=== PATIENT | male | born 1965 | race Caucasian/White ===

== ENCOUNTER 2016-08-13 16:07 | Emergency (ER) | payer OTHER ==
[~2016-08-13] VITALS: Ht 185.4 cm; Wt 145.1 kg
[2016-08-13 16:30] VITALS: BP 138/88
--- NOTE | 2016-08-13 16:41 | PHYS DOC ---
Adult General Chief Complaint Chief Complaint: EYE PROBLEMS HPI HPI Patient is a 51-year-old male who complains that since about a week ago, he has had some occasional redness, eyelid swelling, mattering, itchiness of both eyes. He has had no eye pain, no change in vision. 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 He stopped at a pharmacy and a pharmacist advised him to try some eyedrops of some type, he is not sure what type they were, but they did help somewhat. He is going back on the road tomorrow so wanted to get checked out. He has had seasonal allergy symptoms in the past with sneezing, runny nose, but does not have those right now. Review of Systems Review of Systems Constitutional: Denies fever or chills [] Eyes: As in history of present illness HENT: He has had some nasal congestion also Respiratory: Denies cough or shortness of breath [] Physical Exam Physical Exam Constitutional: Well developed, well nourished, no acute distress, non-toxic appearance. Alert, mentating normally. HENT: Normocephalic, atraumatic, bilateral external ears normal, oropharynx moist, no oral exudates, nose normal. [] Eyes: Eyelids are slightly puffy bilaterally. No mattering in the eyelashes noted. No significant conjunctival injection noted. No chemosis noted. Neck: Normal range of motion, no stridor. [] Skin: Warm, dry, no erythema, no rash. [] Extremities: No tenderness, no cyanosis, no clubbing, ROM intact, no edema. [] Neurologic: Alert and oriented X 3, normal motor function, normal sensory function, no focal deficits noted. [] EKG EKG [] Radiology/Procedures Radiology/Procedures [] Course & Med Decision Making Course & Med Decision Making Pertinent Labs and Imaging studies reviewed. (See chart for details) I believe the patient's symptoms are most likely due to allergic conjunctivitis , see instructions for plan. [] Dragon Disclaimer Dragon Disclaimer This chart was dictated in whole or in part using Voice Recognition software in a busy, high-work load, and often noisy Emergency Department environment. It may contain unintended and wholly unrecognized errors or omissions. Departure Departure: Impression: Primary Impression: Allergic conjunctivitis Disposition: 01 HOME, SELF-CARE Condition: STABLE Patient Instructions: Allergic Conjunctivitis, [id number] Additional Instructions: As we discussed, when you're outside and having allergy symptoms, make sure you shower and wash your hair to get rid of pollen or allergens, wash your clothes before you wear them again for the same reason. Cold compresses to your eyes for swelling and itching symptoms. Purchase [id number] eye drops for allergy symptoms such as Opcon-A or generic, use as directed. NAYE ALBA MD Aug 13, 2016 16:41
== END 2016-08-13 16:44 | disposition home or self-care (01) ==
LOC: ER 16:07
DX: H10.13 Acute atopic conjunctivitis, bilateral (principal); R09.81 Nasal congestion
CPT/HCPCS: 99282

== ENCOUNTER 2019-10-10 08:11 | Emergency (ER) | payer OTHER ==
[~2019-10-10] VITALS: Ht 185.4 cm; Wt 157.8 kg
[2019-10-10] MEDS ORDERED: IV NORMAL SALINE 1,000ML 1,000 ML IV SCH (08:21)
--- NOTE | 2019-10-10 08:23 | PHYS DOC ---
Past History Past Medical History: No Pertinent History, Hypertension Past Medical History enlarged prostate Past Surgical History: No Surgical History Smoking: Non-smoker Alcohol Use: None Drug Use: None General Adult EDM: Chief Complaint: chest pain HPI: HPI: Patient is a 54 year old male who presents for evaluation of central chest pain and chest pressure that started 1 hour ago. Patient was short of air and had significant sweats as well. Patient just got out of the shower at the time. Patient does not have any known cardiac history and has never had a stress test. Risk factors include hypertension. Furthermore patient felt he had tremors this morning as well. Patient anxious on arrival. Review of Systems: Review of Systems: Constitutional: Denies fever or chills Eyes: Denies change in visual acuity HENT: Denies nasal congestion or sore throat Respiratory: Denies cough has shortness of breath Cardiovascular: has chest pain but no edema GI: Denies abdominal pain, nausea, vomiting, bloody stools or diarrhea : Denies dysuria Musculoskeletal: Denies back pain or joint pain Integument: Denies rash Neurologic: Denies headache, focal weakness or sensory changes Endocrine: Denies polyuria or polydipsia Lymphatic: Denies swollen glands Psychiatric: Denies depression or anxiety Heart Score: HEART Score for Chest Pain: HEART Score for Chest Pain Response (Comments) Value History Moderately Suspicious 1 ECG Nonspecific Repolarizatio 1 Age >45 - < 65 1 Risk Factors 1 or 2 Risk Factors 1 Troponin >1-<3x Normal Limit 1 Total 5 Risk Factors: Risk Factors: DM, Current or recent (<one month) smoker, HTN, HLP, family h istory of CAD, obesity. Risk Scores: Score 0 - 3: 2.5% MACE over next 6 weeks - Discharge Home Score 4 - 6: 20.3% MACE over next 6 weeks - Admit for Clinical Observation Score 7 - 10: 72.7% MACE over next 6 weeks - Early Invasive Strategies Physical Exam: PE: Constitutional: Well developed, well nourished, moderate distress. [] HENT: Normocephalic, atraumatic, bilateral external ears normal, oropharynx mo ist, no oral exudates, nose normal. [] Eyes: PERRL, EOMI, conjunctiva normal, no discharge. [] Neck: Normal range of motion, no tenderness, supple, no stridor. [] Cardiovascular:Heart rate regular rhythm, no murmur [] Lungs & Thorax: Bilateral breath sounds clear to auscultation [] Abdomen: Bowel sounds normal, soft, no tenderness, no masses, no pulsatile masses. [] Skin: Warm, sweats present on arrival, no erythema, no rash. [] Back: No tenderness. [] Extremities: No tenderness, no cyanosis, ROM intact, no edema. [] Neurologic: Alert and oriented X 3, normal motor function, normal sensory function, no focal deficits noted. [] Psychologic: Affect normal, judgement normal, mood mild anxious. [] Current Patient Data: Labs: Laboratory Tests Test 10/10/19 08:40 White Blood Count 5.9 x10^3/uL Red Blood Count 4.78 x10^6/uL Hemoglobin 15.8 g/dL Hematocrit 46.7 % Mean Corpuscular Volume 98 fL Mean Corpuscular Hemoglobin 33 pg Mean Corpuscular Hemoglobin Concent 34 g/dL Red Cell Distribution Width 13.9 % Platelet Count 164 x10^3/uL Neutrophils (%) (Auto) 61 % Lymphocytes (%) (Auto) 28 % Monocytes (%) (Auto) 8 % Eosinophils (%) (Auto) 3 % Basophils (%) (Auto) 1 % Neutrophils # (Auto) 3.6 x10^3uL Lymphocytes # (Auto) 1.7 x10^3/uL Monocytes # (Auto) 0.4 x10^3/uL Eosinophils # (Auto) 0.2 x10^3/uL Basophils # (Auto) 0.1 x10^3/uL Sodium Level 136 mmol/L Potassium Level 3.5 mmol/L Chloride Level 100 mmol/L Carbon Dioxide Level 22 mmol/L Anion Gap 14 Blood Urea Nitrogen 19 mg/dL Creatinine 1.4 mg/dL Estimated GFR (Cockcroft-Gault) 53.0 BUN/Creatinine Ratio 14 Glucose Level 152 mg/dL Calcium Level 8.8 mg/dL Total Bilirubin 0.5 mg/dL Aspartate Amino Transf (AST/SGOT) 27 U/L Alanine Aminotransferase (ALT/SGPT) 40 U/L Alkaline Phosphatase 51 U/L Creatine Kinase 262 U/L Creatine Kinase MB (Mass) 1.6 ng/mL Creatine Kinase MB Relative Index 0.6 % Troponin I Quantitative 0.019 ng/mL Total Protein 7.4 g/dL Albumin 3.8 g/dL Albumin/Globulin Ratio 1.1 Current Medications Medications (Trade) Dose Ordered Sig/Candice Route PRN Reason Start Time Stop Time Status Last Admin Dose Admin Aspirin (Aspirin Chewable) 324 mg 1X ONCE PO 10/10/19 08:30 10/10/19 08:42 DC 10/10/19 08:56 Sodium Chloride 1,000 ml @ 100 mls/hr Q10H IV 10/10/19 08:21 10/10/19 18:20 10/10/19 08:57 Adenosine (Adenocard) 6 mg 1X ONCE IV 10/10/19 08:45 10/10/19 08:46 DC 10/10/19 08:55 Adenosine (Adenocard) 6 mg STK-MED ONCE IV 10/10/19 08:34 10/10/19 08:34 DC Adenosine (Adenocard) 12 mg 1X ONCE IV 10/10/19 08:45 10/10/19 08:52 DC 10/10/19 08:56 EKG: EKG: EKG read at 0829 AM showed SVT rate 174, leftward axis, cannot exclude some lateral ischemic changes, [] Second EKG 8:54 AM after adenosine patient now in a normal sinus rhythm rate 95, flattened T wave lead aVL, otherwise unremarkable appearing EKG #3 Read at 1358, normal sinus rhythm, not STEMI, no obvious acute EKG changes Radiology/Procedures: Radiology/Procedures: [][place] [address] IMAGING REPORT Signed PATIENT: JOSEFINA CATHERINE ACCOUNT: [id number] : 1965 LOCATION: ER AGE: 54 SEX: M EXAM STATUS: REG ER ORD. PHYSICIAN: JOAN MEEKS DO REASON: chest pain PROCEDURE: PORTABLE CHEST 1V PORTABLE CHEST 1V Clinical indications: Chest pain. COMPARISON: None available. Findings: No acute lung infiltrate or pleural effusion or pulmonary edema or lung mass or pneumothorax is seen. The heart size, pulmonary vasculature, mediastinum and both compa are unremarkable. Impression: No acute radiographic abnormality is seen. Electronically signed by: Sarbjit Pabon MD (10/10/2019 9:26 AM) [id number] DICTATED AND SIGNED BY: SARBJIT PABON MD DATE: 10/10/19 09 CC: RUSSELL RAMOS MD; JOAN MEEKS DO ~ Course & Med Decision Making: Course & Med Decision Making Pertinent Labs and Imaging studies reviewed. (See chart for details) 0841 adenosine 6 mg given with no improvement of symptoms. That was quickly repeated by adenosine 12 mg IV. This converted patient to a sinus tachycardia rhythm. Patient tolerated procedure well. Pads were in place before medication was given. Repeat EKG ordered 0920 patient feeling much better now. He remains in a normal sinus rhythm. Chest discomfort essentially resolved. Patient no longer diaphoretic 0930 bridge construction inspector for cardiology paged to discuss case. 1000 bridge construction inspector for Cardiology paged again to discuss case, we did receive a call back. 1024 Dr. Keyes from cardiology called to discuss case. Since patient is symptom-free at this time he would like a 4-hour troponin level and if that remains normal patient is to follow-up with him in the office tomorrow. The meantime we will start him on metoprolol 25 mg p.o. twice daily. Patient is currently chest pain-free and asymptomatic 1305 repeat troponin now 0.228. Physician Office Specialist paged to discuss case [phone] Multiple paged to Cardiology were not answered. I talked to the hospitalist service under Dr. Matute and he suggested pt will need higher level of care. Pt consented to transport to [facility]. 13[address] Dr. Boudreaux will be the accepting physician at [facility]. We will give loading dose of heparin IV as requested 4000 units. They will be consult with Dr. Keyes 1359 Dr. Keyes called back. Will see patient in consult at [facility]. Current EKG does not show evidence of a STEMI. Mckinley Disclaimer: Mckinley Disclaimer: This electronic medical record was generated, in whole or in part, using a voice recognition dictation system. Departure Departure: Impression: Primary Impression: SVT (supraventricular tachycardia) Additional Impressions: Elevated troponin I level Substernal precordial chest pain Disposition: 05 TRANSFER OTHER (Transferred to [facility] under the care of Dr. Boudreaux) Condition: STABLE Referrals: RUSSELL RAMOS MD (PCP) Justification of Admission: Justification of Admission: Justification of Admission Dx: Yes Angina: Symp at Rest Cardioversion Indication: SVT Consent: verbal Pre-Medication: none Procedure: The patient was placed in the supine position and the chest area was exposed. The cardioversion pads were applied in the standard manner and configuration. Attempt #1: adenosine 6mg followed by adenosine 12mg IV given Attempt #2: [RESULTS:] Attempt #3: [RESULTS:] The patient tolerated the procedure well Complications: none Critical Care Time Critical care time was 30 minutes exclusive of procedures. This included talking to the insecticide maker, hospitalist, family as well as reviewing x-ray results, EKG and lab result JOAN MEEKS DO Oct 10, 2019 08:23
[2019-10-10] MEDS ORDERED: ASPIRIN CHEWABLE 81 MG TABLET. PO ONE (08:30)
[2019-10-10] MEDS ORDERED: ADENOSINE 6 MG/2 ML VIAL IV ONE ×3 (08:34→08:45)
[2019-10-10 09:08] LABS: BASO # 0.1 x10^3/uL (0.0-0.2); BASO % 1 % (0-3); EOS # 0.2 x10^3/uL (0.0-0.7); EOS % 3 % (0-3); HEMATOCRIT 46.7 % (39.0-53.0); HEMOGLOBIN 15.8 g/dL (13.0-17.5); LYMPH # 1.7 x10^3/uL (1.0-4.8); LYMPH % 28 % (24-48); MEAN CORPUSCULAR HEMOGLOBIN 33 pg (25-35); MEAN CORPUSCULAR HGB CONC 34 g/dL (31-37); MEAN CORPUSCULAR VOLUME 98 fL (79-100); MONO # 0.4 x10^3/uL (0.0-1.1); MONO % 8 % (0-9); NEUT # 3.6 x10^3uL (1.8-7.7); NEUT % 61 % (31-73); PLATELET COUNT 164 x10^3/uL (140-400); RED BLOOD COUNT 4.78 x10^6/uL (4.30-5.70); RED CELL DISTRIBUTION WIDTH 13.9 % (11.5-14.5); WHITE BLOOD COUNT 5.9 x10^3/uL (4.0-11.0)
[2019-10-10 09:11] LABS: CALCIUM 8.8 mg/dL (8.5-10.1); CREATININE 1.4 mg/dL (0.7-1.3); POTASSIUM 3.5 mmol/L (3.5-5.1)
[2019-10-10 09:26] LABS: ALBUMIN 3.8 g/dL (3.4-5.0); ALBUMIN/GLOBULIN RATIO 1.1 (1.0-1.7); TOTAL BILIRUBIN 0.5 mg/dL (0.2-1.0); TOTAL PROTEIN 7.4 g/dL (6.4-8.2)
--- NOTE | 2019-10-10 09:28 | RAD ---
PORTABLE CHEST 1V Clinical indications: Chest pain. COMPARISON: None available. Findings: No acute lung infiltrate or pleural effusion or pulmonary edema or lung mass or pneumothorax is seen. The heart size, pulmonary vasculature, mediastinum and both compa are unremarkable. Impression: No acute radiographic abnormality is seen. Electronically signed by: Lalo Pabon MD (10/10/2019 9:26 AM) [id number]
[2019-10-10] MEDS ORDERED: METOPROLOL TART IMMED RELEASE 25 MG TABLET PO ONE (10:30)
[2019-10-10] MEDS ORDERED: HEPARIN for IV BOLUS 10,000 UNIT/10 ML VIAL. IV ONE (14:00)
--- NOTE | 2019-10-10 14:46 | EKG ---
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
[2019-10-10 15:35] LABS: BARBITURATES NEG (NEG); BENZODIAZEPINES NEG (NEG); CANNABINOIDS NEG (NEG); COCAINE NEG (NEG); METHADONE NEG (NEG); OPIATES NEG (NEG); PHENCYCLIDINE NEG (NEG)
[2019-10-10 15:36] LABS: AMPHETAMINE/METHAMPHETAMINE NEG (NEG)
[2019-10-10 15:44] LABS: BILIRUBIN,URINE NEG (NEG); CLARITY,URINE CLEAR; COLOR,URINE YELLOW; GLUCOSE,URINE NEG (NEG)
[2019-10-10 15:45] LABS: BACTERIA,URINE 0 /HPF (0-FEW); NITRITE,URINE NEG (NEG); RBC,URINE 0 /HPF (0-2); SQUAMOUS EPITHELIAL CELL,UR FEW /LPF; UROBILINOGEN,URINE 0.2 mg/dL (0.2 mg/dL); WBC,URINE OCC /HPF (0-4)
--- NOTE | 2019-10-10 15:48 | EKG ---
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
--- NOTE | 2019-10-10 15:49 | EKG ---
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
[2019-10-10 16:10] VITALS: BP 117/68
[2019-10-10 19:27] LABS: FREE T4 1.03 ng/dL (0.76-1.46); THYROID STIM HORMONE (TSH) 2.078 uIU/mL (0.358-3.740)
== END 2019-10-10 17:10 | disposition short-term general hospital (02) ==
LOC: ER 08:11
DX: I47.1 Supraventricular tachycardia (principal); R79.89 Other specified abnormal findings of blood chemistry; R07.2 Precordial pain; I10 Essential (primary) hypertension
CPT/HCPCS: 36415; 71045; 80053; 80307; 81001; 82553; 84439; 84443; 84484; 85025; 92960; 93005; 96361; 96374; 99285; J0153; J1644; J7030; 96375

== ENCOUNTER → 2020-08-31 | Outpatient (CLI) | payer OTHER ==
--- NOTE | 2020-08-31 10:56 | RAD ---
EXAM: Nuclear hepatobiliary scan. HISTORY: Pain. TECHNIQUE: Following intravenous administration of 5 mCi Tc 99m Choletec, anterior images of the abdo men were obtained at five minute intervals through one hour. Subsequently, 8 ounces of Boost drink wa s ingested and additional images to assess gallbladder ejection fraction were obtained. FINDINGS: There is prompt radiotracer uptake by the liver. No focal defect is seen. There is normal e xcretion into the biliary tree. The gallbladder is visualized within 10 minutes and there is free jose elias w into the duodenum. The gallbladder ejection fraction is 44 percent. IMPRESSION: Normal radionuclide biliary scan. Electronically signed by: Bhavna Osuna MD (08/31/2020 10:54 AM) [id number]
== END ==
LOC: NM 07:36
PROVIDERS: ATTEND Family Medicine
DX: R10.11 Right upper quadrant pain (principal)
CPT/HCPCS: 78227; A9537

== ENCOUNTER 2020-12-10 23:09 | Emergency (ER) | payer OTHER ==
[~2020-12-10] VITALS: Ht 185.4 cm; Wt 159.6 kg
[2020-12-10] MEDS ORDERED: ADENOSINE 6 MG/2 ML VIAL IV ONE (23:23)
[2020-12-10] MEDS: IV RINGERS SOLUTION,LACTATED 1,000 ML IV SCH (23:27)
--- NOTE | 2020-12-10 23:29 | PHYS DOC ---
Past History Past Medical History: No Pertinent History, Hypertension Additional Past Medical Histor: prostate issues Past Medical History SVT Past Surgical History: No Surgical History Smoking: Non-smoker Alcohol Use: Occasionally Drug Use: None General Adult HPI: HPI: ".. I ve had this happen before.. I ve been doing good.. but went to bed,,, fine. and then woke up with my heart beating out of my chest... ".." They gave me some IV meds before to get it to stop..." Patient is a 55 year old male who presents with above hx and complaints of tachycardia. Patient's monitor shows a supraventricular tachycardia ranging from 150s to 170s. Patient does have a past history of SVT. Patient does have associated chest pain between his shoulder blades in relation to the rapid heart rate. Patient denies any illicit drug use. Patient has been using caffeine recently. No history of any trauma. No history of travel. No history of ill contacts. No history immunosuppression. Normally follows Dr. Ramos. Patient has been compliant with metoprolol at to control his proximal SVT. No history of coagulopathy with him or family members. Review of Systems: Review of Systems: Constitutional: Denies fever or chills Eyes: Denies change in visual acuity HENT: Denies nasal congestion or sore throat Respiratory: Denies cough or shortness of breath Cardiovascular: Complains of chest pain and rapid heart rate GI: Denies abdominal pain, nausea, vomiting, bloody stools or diarrhea : Denies dysuria Musculoskeletal: Denies back pain or joint pain Integument: Denies rash Neurologic: Denies headache, focal weakness or sensory changes Endocrine: Denies polyuria or polydipsia Lymphatic: Denies swollen glands Psychiatric: Denies depression or anxiety Family History: Family History: Noncontributory to presentation. Current Medications: Current Meds: Current Medications Medications (Trade) Dose Ordered Sig/Candice Start Time Stop Time Status Last Admin Dose Admin Adenosine (Adenocard) 6 mg STK-MED ONCE 12/10/20 23:23 12/10/20 23:23 DC Allergies: Allergies: Allergies Coded Allergies Type Severity Reaction Last Updated Verified No Known Drug Allergies 10/10/19 No Physical Exam: PE: Constitutional: Moderate acute distress, non-toxic appearance. [] HENT: Normocephalic, atraumatic, bilateral external ears normal, oropharynx moist, no oral exudates, nose normal. [] Eyes: PERRLA, EOMI, conjunctiva normal, no discharge. [] Neck: Normal range of motion, no tenderness, supple, no stridor. [] Cardiovascular: Tachycardia heart rate regular rhythm, no murmur []. The monitor shows a supraventricular tachycardia. Lungs & Thorax: Bilateral breath sounds equal apex with few scattered wheezes on auscultation [] Abdomen: Bowel sounds normal, soft, no tenderness, no masses, no pulsatile masses. Obese. Skin: Warm, dry, no erythema, no rash. [] Back: No tenderness, no CVA tenderness. [] Extremities: No tenderness, no cyanosis, no clubbing, ROM intact, bilateral trace ankle edema. No cording Neurologic: Alert and oriented X 3, moves all extremities on request, does have distal sensory,, no focal deficits noted. [] Psychologic: Affect anxious, judgement normal, mood normal. [] EKG: EKG: My interpretation EKG shows a supraventricular tachycardia at a rate of 149 bpm. No findings of acute STEMI of contralateral changes. Time of this EKG is 2315 hrs. My interpretation of EKG #2 post adenosine-shows a sinus rhythm at 90 bpm. No acute morphology. Time of this EKG is 2343 hrs. My interpretation EKG #3 shows sinus rhythm at 78 bpm. No acute morphology. Time of this EKG is 0 to 33 hours Radiology/Procedures: Radiology/Procedures: [][address] [address] IMAGING REPORT Signed PATIENT: JOSEFINA CATHERINE ACCOUNT: [id number] : 1965 LOCATION: ER AGE: 55 SEX: M EXAM STATUS: PRE ER ORD. PHYSICIAN: JULISSA CHEEMA MD REASON: cp PROCEDURE: PORTABLE CHEST 1V Single view chest dated 12/10/2020 11:58 PM: COMPARISON: 10/10/2019 Clinical Indication: Chest pain. Findings: Single upright portable exam of the chest was performed. Heart size and mediastinal contours are within normal limits. Lungs are clear. No consolidation or pleural effusion. No pneumothorax. IMPRESSION: No acute radiographic abnormality. Electronically signed by: Boom Perkins MD (12/10/2020 11:59 PM) [facility] [place] DICTATED AND SIGNED BY: BOOM PERKINS MD DATE: 12/10/20 2795 CC: JULISSA CHEEMA MD; RUSSELL RAMOS MD ~MTH0 0 Heart Score: C/O Chest Pain: Yes HEART Score for Chest Pain: HEART Score for Chest Pain Response (Comments) Value History Moderately Suspicious 1 ECG Nonspecific Repolarizatio 1 Age >45 - < 65 1 Risk Factors 1 or 2 Risk Factors 1 Troponin < Normal Limit 0 Total 4 Risk Factors: Risk Factors: DM, Current or recent (<one month) smoker, HTN, HLP, family history of CAD, obesity. Risk Scores: Score 0 - 3: 2.5% MACE over next 6 weeks - Discharge Home Score 4 - 6: 20.3% MACE over next 6 weeks - Admit for Clinical Observation Score 7 - 10: 72.7% MACE over next 6 weeks - Early Invasive Strategies Course & Med Decision Making: Course & Med Decision Making Pertinent Labs and Imaging studies reviewed. (See chart for details) See flow sheet for cardio conversion of SVT with adenosine. Patient reports resolution of chest pain and irregular heart rhythm since conversion with adenosine. Patient requesting discharge. Patient refusing admission at this time. Patient exhibits UCAR capacity. The patient follow-up EKG shows no acute morphology. Tropes to remain in normal range. Patient take a daily aspirin. Patient follow-up primary care. Consider follow-up with cardiology. Consider outpatient stress testing. Return if any concerns. Impression: 1. PSVT- 2. DM glucose 175 3. Morbid Obesity 4. Hx. HTN [] Dragon Disclaimer: Dragon Disclaimer: This electronic medical record was generated, in whole or in part, using a voice recognition dictation system. Departure Departure: Referrals: RUSSELL RAMOS MD (PCP) Mckinley Disclaimer This chart was dictated in whole or in part using Voice Recognition software in a busy, high-work load, and often noisy Emergency Department environment. It may contain unintended and wholly unrecognized errors or omissions. JULISSA CHEEMA MD Dec 10, 2020 23:29
[2020-12-10] MEDS: ADENOSINE 6 MG/2 ML VIAL IV ONE ×2 (23:36→23:38)
[2020-12-10] MEDS: ASPIRIN CHEWABLE 81 MG TABLET. PO ONE (23:54)
[2020-12-10] MEDS: METOPROLOL TARTRATE 5 MG/5 ML VIAL. IV ONE (23:55)
[2020-12-11] MEDS: ENOXAPARIN ** NOTE DOSE ** SYRINGE SQ ONE
--- NOTE | 2020-12-11 00:01 | RAD ---
Single view chest dated 12/10/2020 11:58 PM: COMPARISON: 10/10/2019 Clinical Indication: Chest pain. Findings: Single upright portable exam of the chest was performed. Heart size and mediastinal contours are with in normal limits. Lungs are clear. No consolidation or pleural effusion. No pneumothorax. IMPRESSION: No acute radiographic abnormality. Electronically signed by: Boom Perkins MD (12/10/2020 11:59 PM) GURPREET
[2020-12-11 00:04] LABS: BASO # 0.1 x10^3/uL (0.0-0.2); BASO % 1 % (0-3); EOS # 0.2 x10^3/uL (0.0-0.7); EOS % 3 % (0-3); HEMATOCRIT 43.7 % (39.0-53.0); HEMOGLOBIN 14.7 g/dL (13.0-17.5); LYMPH # 2.3 x10^3/uL (1.0-4.8); LYMPH % 31 % (24-48); MEAN CORPUSCULAR HEMOGLOBIN 32 pg (25-35); MEAN CORPUSCULAR HGB CONC 34 g/dL (31-37); MEAN CORPUSCULAR VOLUME 96 fL (79-100); MONO # 0.7 x10^3/uL (0.0-1.1); MONO % 10 % (0-9); NEUT # 4.3 x10^3uL (1.8-7.7); NEUT % 56 % (31-73); PLATELET COUNT 164 x10^3/uL (140-400); RED BLOOD COUNT 4.55 x10^6/uL (4.30-5.70); RED CELL DISTRIBUTION WIDTH 13.3 % (11.5-14.5); WHITE BLOOD COUNT 7.6 x10^3/uL (4.0-11.0)
[2020-12-11 00:10] LABS: CALCIUM 8.2 mg/dL (8.5-10.1); GFR 77.9; POTASSIUM 3.6 mmol/L (3.5-5.1)
[2020-12-11 00:21] LABS: ALBUMIN 3.7 g/dL (3.4-5.0); DIRECT BILIRUBIN 0.1 mg/dL (0.0-0.2); MAGNESIUM 2.2 mg/dL (1.8-2.4); TOTAL BILIRUBIN 0.1 mg/dL (0.2-1.0); TOTAL PROTEIN 7.3 g/dL (6.4-8.2)
[2020-12-11 01:02] LABS: BARBITURATES NEG (NEG); BENZODIAZEPINES NEG (NEG); CANNABINOIDS NEG (NEG); COCAINE NEG (NEG); METHADONE NEG (NEG); OPIATES NEG (NEG); PHENCYCLIDINE NEG (NEG)
[2020-12-11 01:15] LABS: AMPHETAMINE/METHAMPHETAMINE NEG (NEG)
[2020-12-11 01:23] LABS: BACTERIA,URINE FEW /HPF (0-FEW); BILIRUBIN,URINE NEG (NEG); CLARITY,URINE CLEAR; COLOR,URINE YELLOW; GLUCOSE,URINE NEG (NEG); NITRITE,URINE NEG (NEG); RBC,URINE 0 /HPF (0-2); UROBILINOGEN,URINE 0.2 mg/dL (0.2 mg/dL); WBC,URINE 0 /HPF (0-4)
[2020-12-11 01:24] LABS: SQUAMOUS EPITHELIAL CELL,UR FEW /LPF
--- NOTE | 2020-12-11 02:17 | EKG ---
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
[2020-12-11 04:00] VITALS: BP 112/60
--- NOTE | 2020-12-11 04:13 | EKG ---
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
--- NOTE | 2020-12-11 04:15 | EKG ---
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
[2020-12-11 18:27] LABS: THYROID STIM HORMONE (TSH) 2.902 uIU/mL (0.358-3.740)
== END 2020-12-11 04:07 | disposition home or self-care (01) ==
LOC: ER 23:09
DX: I47.1 Supraventricular tachycardia (principal); E11.9 Type 2 diabetes mellitus without complications; I10 Essential (primary) hypertension; E66.01 Morbid (severe) obesity due to excess calories; Z68.42 Body mass index [BMI] 45.0-49.9, adult
CPT/HCPCS: 36415; 71045; 80048; 80061; 80076; 80307; 81001; 82550; 83690; 83735; 83880; 84443; 84484; 85025; 85379; 85610; 85730; 93005; 96361; 96372; 96374; 96375; 99285; J0153; J1650; J3490; J7120

== ENCOUNTER 2021-02-06 12:15 | Emergency (ER) | payer OTHER ==
[~2021-02-06] VITALS: Ht 185.4 cm; Wt 160.0 kg
[2021-02-06 12:30] VITALS: BP 166/94
[2021-02-06] MEDS ORDERED: ORPHENADRINE CITRATE 60 MG/2 ML VIAL. IM ONE (13:15)
[2021-02-06] MEDS ORDERED: HYDROcodone/APAP 7.5/325MG 1 TAB TABLET PO ONE (13:15)
[2021-02-06] MEDS ORDERED: ORPH-16 PO (13:19)
[2021-02-06] MEDS ORDERED: HYDR-2763 PO (13:19)
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
== END 2021-02-06 13:28 | disposition home or self-care (01) ==
LOC: ER 12:15
DX: M79.10 Myalgia, unspecified site (principal); I10 Essential (primary) hypertension; G89.29 Other chronic pain; V89.2XXA Person injured in unspecified motor-vehicle accident, traffic, initial encounter; Y93.89 Activity, other specified; Y92.89 Other specified places as the place of occurrence of the external cause; Y99.8 Other external cause status
CPT/HCPCS: 96372; 99283; J2360